=== PATIENT | female | born 1955 | race African-American/Black ===

== ENCOUNTER 2020-08-24 08:52 | Day surgery (SDC) | payer BC ==
[2020-08-21 10:39] VITALS: BMI 23.7
--- NOTE | 2020-08-21 14:14 | HP ---
Admitting History and Physical - Primary Care Physician PCP: Blake Cooper - Admission Chief Complaint: H/o right breast cancer History of Present Illness: Patient is a 65 yo female with h/o right breast WE and SNBx in 2014 sec to cancer. The cancer was triple negative and therefore patient received chemo and radiation. Patient is now presenting for removal of lifeport. History Source: Patient Limitations to Obtaining History: No Limitations - Past Medical History Heme/Onc: Yes: Cancer (right breast cancer (2015)) - Past Surgical History Past Surgical History: Yes: Breast Biopsy (right breast WE with snbx 2014) Additional Past Surgical History: port placement endometrial ablation (at 53) left core bx (2017) - Smoking History Smoking history: Former smoker Have you smoked in the past 12 months: No If you are a former smoker, when did you quit?: 30 YEARS AGO Home Medications - Allergies Allergies/Adverse Reactions: Allergies Allergy/AdvReac Type Severity Reaction Status Date / Time vancomycin Allergy Severe Hives Verified 08/21/20 10:26 latex Allergy Intermediate Itching Verified 08/21/20 10:26 - Home Medications Home Medications: Ambulatory Orders NK [No Known Home Medication] 08/21/20 Family Medical History Family Hx Cancer: Grandmother (maternal) (ovarian cancer), Mother (breast cancer at 75), Father (prostate cancer at 65) Review of Systems - Review of Systems Constitutional: reports: No Symptoms Cardiovascular: reports: No Symptoms Respiratory: reports: No Symptoms Physical Examination Constitutional: Yes: Well Nourished, Calm Breast(s): Yes: Other (A cup breasts with a well-healed right breast scar. No evidence of palpable masses or adenopathy noted bilaterally.) Problem List - Problems (1) Breast cancer, right Code(s): C50.911 - MALIGNANT NEOPLASM OF UNSP SITE OF RIGHT FEMALE BREAST Qualifiers: Breast location: unspecified site of breast Patient sex: female Assessment/Plan Removal of lifeport
--- OUTSIDE RECORDS SUMMARY | 2020-08-24 08:56 | XMS ---
:1955 Author Organization [facility] Care Team Providers Name Role Phone EDEN [place] Unavailable Unavailable ACIERNO Unavailable Unavailable Acierno Unavailable MD ZORAIDA Unavailable Unavailable MD ZORAIDA Unavailable Unavailable MD ZORAIDA Unavailable Unavailable MD ZORAIDA Unavailable Unavailable MD ZORAIDA Unavailable Unavailable MD ZORAIDA Unavailable Unavailable MD ZORAIDA Unavailable Unavailable MD ZORAIDA Unavailable Unavailable MD ZORAIDA Unavailable Unavailable MD ZORAIDA Unavailable Unavailable MD ZORAIDA Unavailable Unavailable MD ZORAIDA Unavailable Unavailable MD ZORAIDA Unavailable Unavailable MD ZORAIDA Unavailable Unavailable MD ZORAIDA Unavailable Unavailable MD ZORAIDA Unavailable Unavailable MD ZORAIDA Unavailable Unavailable MD ZORAIDA Unavailable Unavailable MD ZORAIDA Unavailable Unavailable MD ZORAIDA Unavailable Unavailable MD ZORAIDA Unavailable Unavailable MD ZORAIDA Unavailable Unavailable MD ZORAIDA Unavailable Unavailable MD ZORAIDA Unavailable Unavailable MD ZORAIDA Unavailable Unavailable Gerard Copeland Unavailable Unavailable Nasra Alvarez Unavailable Unavailable Louis [place] Unavailable [phone] Louis [place] Unavailable [phone] Nasra [place]. Unavailable [phone] Louis [place] Unavailable [phone] Louis [place] Unavailable [phone] Louis [place] Unavailable [phone] [place], M. Unavailable [phone] Nasra [place]. Unavailable [phone] Nasra [place]. Unavailable [phone] Nasra [place]. Unavailable [phone] Nasra [place]. Unavailable [id number] Re-disclosure Warning The records that you are about to access may contain information from federally- assisted alcohol or drug abuse programs. If such information is present, then the following federally mandated warning applies: This information has been disclosed to you from records protected by federal confidentiality rules (42 CFR part 2). The federal rules prohibit you from making any further disclosure of this information unless further disclosure is expressly permitted by the written consent of the person to whom it pertains or as otherwise permitted by 42 CFR part 2. A general authorization for the release of medical or other information is NOT sufficient for this purpose. The Federal rules restrict any use of the information to criminally investigate or prosecute any alcohol or drug abuse patient.The records that you are about to access may contain highly sensitive health information, the redisclosure of which is protected by Article 27-F of the [facility] Public Health law. If you continue you may haveaccess to information: Regarding HIV / AIDS; Provided by facilities licensed or operated by the [facility] Office of Mental Health; or Provided by the [facility] Office for People With Developmental Disabilities. If such information is present, then the following [facility] mandated warning applies: This information has been disclosed to you from confidential records which are protected by state law. State law prohibits you from making any further disclosure of this information without the specific written consent of the person to whom it pertains, or as otherwise permitted by law. Any unauthorized further disclosure in violation of state law may result in a fine or usp sentence or both. A general authorization for the release of medical or other information is NOT sufficient authorization for further disclosure. Allergies and Adverse Reactions Type Description Substance Reaction Status Data Source(s ) 1 LATEX LATEX (fatal) NEXTGEN ([facility] ) LATEX Latex NEXTGEN ([facility]) 1 vancomycin vancomycin NEXTGEN ([facility]) Encounters Encounter Providers Location Date Indications Data Source(s ) Outpatient Attender: Magda 08/21/2020 YVETTE Alvarez 07:34:00 AM ([facility]) Outpatient Attender: Magda 08/20/2020 NEXTGEN Alvarez 09:04:00 AM ([facility] EDT Medical [facility]) Outpatient Attender: Magda 08/16/2020 YVETTE Lema 03:00:00 PM ([facility] NaomyReferrer: EDT Medica l - [facility]) Outpatient Attender: Magda 08/11/2020 NEXTGEN Alvarez 09:49:00 AM ([facility] EDT Medical [facility]) Outpatient Attender: Magda 06/14/2020 YVETTE Alvarez 12:00:00 AM ([facility] EDT [facility]) Attender: EDEN 06/08/2020 Dk [place] 02:47:19 PM EDT - 06/08/2020 11:59:00 PM EDT Attender: EDEN 06/08/2020 Dk arce [place] 02:47:19 PM EDT - 06/08/2020 11:32:08 AM EDT Attender: EDEN BRENNAN SDS-POB MRI 06/08/2020 [facility] [place] 11:33:30 AM EDT - 06/08/2020 11:59:00 PM EDT Attender: EDEN DENISB SDS-POB 06/08/2020 [facility] [place] MAMMO 11:32:08 AM EDT - 06/08/2020 11:32:08 AM EDT Attender: Gary 06/04/2020 [facility] [place] 11:07:10 AM EDT - 06/04/2020 11:08:19 AM EDT Attender: GARY BRENNAN UC-POB UC 06/04/2020 [facility] ACIERNO 10:53:19 AM EDT Attender: EDEN 05/26/2020 Dk arce [place] 11:54:11 AM EDT - 05/26/2020 11:59:00 PM EDT Attender: EDEN 05/26/2020 Dk POLANCOEL 11:08:19 AM EDT - 05/26/2020 11:59:00 PM EDT Attender: EDEN 05/26/2020 [facility] [place] 11:08:14 AM EDT - 05/26/2020 08:43:00 AM EDT Attender: UMANGI POB SDS-POB BC 05/26/2020 [facility] [place] 08:44:59 AM EDT Attender: UMANGI POB SDS-POB BC 05/26/2020 [facility] [place] 08:44:09 AM EDT - 05/26/2020 11:59:00 PM EDT Attender: UMANGI POB SDS-POB 05/26/2020 [facility] [place] MAMMO 08:42:18 AM EDT - 05/26/2020 08:43:00 AM EDT Attender: UMANGI 04/28/2020 [facility] [place] 11:14:47 AM EDT - 04/28/2020 11:59:00 PM EDT Attender: EDEN POB SDS-POB MRI 04/28/2020 [facility] [place] 10:57:10 AM EDT - 04/28/2020 11:59:00 PM EDT Outpatient Attender: Magda 04/26/2020 YVETTE Alvarez 10:47:00 AM ([facility] EDT [facility] - [facility]) Outpatient Attender: Magda 04/26/2020 YVETTE Alvarez 10:37:00 AM ([facility] EDT Medical [facility]) Outpatient 04/26/2020 NEXT ([facility]T Outpatient 04/25/2020 YVETTE ([facility] 08:42:[facility] EDT Outpatient Attender: Magda 04/18/2020 YVETTE Alvarez 03:21:00 PM ([facility] EDT Medical - [facility]) Outpatient Attender: Magda 04/18/2020 YVETTE Lema 03:15:00 PM ([facility] NaomyReferrer: EDT Medica l - [facility]) Outpatient 02/17/2020 NEXT ([facility] 07:11:[facility] EDT Outpatient 02/16/2020 YVETTE ([facility] 07:47:[facility] EST Outpatient 01/15/2020 YVETTE ([facility] 07:22:00 AM [facility] EST Outpatient Attender: Magda 10/20/2019 YVETTE Lema 10:00:00 AM [facility] Outpatient Attender: SERA 10/19/2019 YVETTE CONWAY MD 10:18:00 AM ([facility] EST [facility] - [facility]) Attender: UMANGI 09/13/2019 [facility] [place] 09:44:57 AM EDT - 09/13/2019 11:59:00 PM EDT Attender: UMANGI POB SDS-POB BD 09/13/2019 [facility] [place] 09:06:05 AM EDT Attender: UMANGI 09/13/2019 [facility] [place] 08:22:09 AM EDT - 09/13/2019 08:44:00 AM EDT Attender: UMANGI POB SDS-POB MRI 09/13/2019 [facility] [place] 08:01:22 AM EDT Outpatient Attender: Magda 09/01/2019 YVETTE Alvarez 12:00:00 AM ([facility] - [facility]) Outpatient Attender: Magda 06/28/2019 YVETTE Lema 12:00:00 AM ([facility] NaomyReferrer: EDT Medica l - [facility]) Medications Medication Brand Start Product Dose Route Administrative Pharmacy at Indications Reaction Description Data Name Date Form Instructions Instructions Source(s) Carboxymeth REFRES RP NEXTGE N ylcellulose H ([facility] Sodium 5 TEARS Medical - MG/ML [facility] ) 0.5 % 0.5 % This may be an active medication. No end date is available. Start date above may not reflect actual date the medication was s tarted. lidocaine [id number] 06/08/2020 10 Infiltration complete d 10 mL, [facility] 1 % 02:45:00 PM mL Infiltration, Health injection EDT ONCE, [place] 10 mL 06/08/20 at 1445, For 1 dose Medication administered onsite Epinephrine 0.01 MG/ML lidocaine-epinephrine 06/08/2020 30 Intradermal completed 30 mL, [facility] / Lidocaine 1 %-1:417308 injection 02:30:00 PM mL Intradermal, Health Hydrochloride 10 MG/ML 30 mL EDT O NCE, [place] Injectable Solution at lidocaine-epinephrine 144 5, For 1 1 %-1:757586 injection do se 30 mL Medication administered onsite gadoteridol [id number] 06/08/2020 0.1 Intravenous completed 7.03 mmol [facility] (PROHANCE) 01:15:00 PM mmol/kg (0.1 mmol/kg Health injection EDT 7.03 mmol 70.3 kg), Intravenous, ONCE, [place] 06/08/20 at 1315, For 1 dose Medication administered onsite gadoteridol [id number] 04/28/2020 0.1 Intravenous completed 7.08 mmol [facility] (PROHANCE) 12:00:00 PM mmol/kg (0.1 mmol/kg Health injection EDT 7.08 mmol 70.8 kg), Intravenous, ONCE, 04/28/20 at 1200, For 1 dose Medication administered onsite Doxycycline DOXYCYCLINE 10/20/2019 take 1 RP NEXTGEN Monohydrate 100 MONOHYDRATE 12:00:00 AM tablet by ([facility] MG Oral Tablet EST oral route Medical - [place] 100 mg 100 mg 2 times [facility] every day [facility]) This may be an active medication. No end date is available. gadoteridol [id number] 09/13/2019 0.1 Intravenous completed 6.99 mmol [facility] (PROHANCE) 08:45:00 AM mmol/kg (0.1 mmol/kg Health injection EDT 6.99 mmol 69.9 kg), Intravenous, ONCE, 09/13/19 at 0845, For 1 dose Medication administered onsite adapalene 1 ADAPALENE 07/08/2017 apply by RP NEXTGEN MG/ML Topical 12:00:00 AM EDT topical route ([facility] Cream 0.1 % 0.1 every day to Medical - [place] % the [facility]) bedtime This may be an active medication. No end date is available. Fluocinonide 0.5 FLUOCINONIDE 07/08/2017 apply by NEXTGEN MG/ML Topical 12:00:00 AM topical ([facility] Solution 0.05 % EDT route 2 M edical - [place] 0.05 % times every [facility] day to the [facility]) affected area(s) This may be an active medication. No end date is available. Fluocinonide FLUOCINONIDE 06/16/2017 apply by JOSEPHINE NEXTGEN 0.0005 MG/MG 12:00:00 AM topical ([facility] Topical Ointment EDT route 2 Medical - [place] 0.05 % 0.05 % times every [facility] to the [facility]) affected area(s) This may be an active medication. No end date is available. Insurance Providers Payer name Policy type Policy ID Covered Covered green party's Policy P lucas / Coverage green party ID relationship to [employer] ormation type johnson BC PPO [id number] SP [id number] [place] [id number] [facility] [id number] Self YLS [id number] [facility] [id number] Self [id number] HEALTHCARE Problems, Conditions, and Diagnoses Code Display Name Description Problem Type Effective Data Sour ce(s) Dates Z95.828 Presence of other Port-A-Cath in Diagnosis 08/16/[address] implants place 03:00:00 PM ([facility] grafts EDT Medical - [place] [facility]) Z01.818 Encounter for Pre-op evaluation Diagnosis 08/16/2020 NEXT GEN other 03:00:00 PM ([facility] preprocedural EDT Medical - M t examination [facility]) N63.0 Unspecified lump Unspecified lump Diagnosis 06/08/2020 [facility] in unspecified in unspecified 11:32:08 AM breast breast EDT Z11.59 Encounter for Encounter for Diagnosis 06/04/2020 Dk peters screening for screening for 10:53:19 AM other viral other viral EDT diseases diseases R92.8 Other abnormal and Other abnormal Diagnosis 05/26/2020 [facility] inconclusive and inconclusive 08:44:59 AM findings on findings on EDT diagnostic imaging diagnostic of breast imaging of breast C50.919 Malignant neoplasm Malignant Diagnosis 05/26/2020 [facility] of unspecified neoplasm of 08:42:18 AM site of unspecified site EDT unspecified female of unspecified breast female breast Z11.59 Encounter for Encounter for Diagnosis 04/18/2020 NEXTGEN screening for laboratory 03:15:00 PM ([facility] other viral testing for EDT Medical - [place] diseases COVID-19 virus [facility]) M54.2 Cervicalgia Neck pain Diagnosis 10/20/2019 NEXTGEN 10:00:00 AM ([facility] EST Medical - [place] [facility] W57.xxxA Bitten or stung by Insect bite, Diagnosis 10/20/2019 NEXT GEN nonvenomous insect unspecified site, 10:00:00 A M ([facility] and other initial encounter EST [facility] [place] nonvenomous [facility]) initial encounter Surgeries/Procedures Procedure Description Date Indications Data Source(s) OFFICE CONSULTATION OFFICE CONSULTATION 08/16/2020 N EXTGEN ([facility] 12:00:00 AM Medical - [place] Ki sco EDT [facility]) MA DIG MA DIG Routine 06/08/2020 Lump or 06/08/2020 Lump or Ga rnet POST PROC POST PROC 2:27 PM EDT mass in 02:27:50 PM mass in Health MASSIMO LEFT MASSIMO LEFT breast EDT breast BREAST BREAST Lump or mass in breast MR GUIDANCE MRI Routine 06/08/2020 Lump or 06/08/2020 Lump o r [facility] NEEDLE BREAST 2:13 PM EDT mass in 02:13:25 PM mass in Health PLACEMENT BIOPSY breast EDT breast LEFT Lump or mass in breast CREATININE CREATININE Routine 06/08/2020 06/08/2020 [facility] BLOOD BLOOD POC 12:16 PM 12:16:00 PM H ealth EDT EDT US AXILLA US AXILLA Routine 05/26/2020 Abnormal 05/26/2020 Abnor mal MRI, [facility] LEFT LEFT 9:10 AM EDT ultrasound 09:10:37 AM breas tAbnormal Health of breast EDT ultrasound of Abnormal breast MRI, breast Abnormal MRI, breast Abnormal ultrasound of breast US EVAL US EVAL Routine 05/26/2020 Breast 05/26/2020 Breast Ga rnet BREAST BREAST 9:10 AM EDT cancer 09:10:17 AM cancer Health MASS LEFT MASS LEFT EDT Breast cancer MA DIGITAL MA DIGITAL Routine 05/26/2020 Breast 05/26/[address] [facility] MAMMO TORRIE MAMMO TORRIE 8:48 AM EDT cancer 08:48:04 AM can er Health DIAGNOSTIC DIAGNOSTIC EDT Breast cancer MRI BREAST MRI BREAST Routine 04/28/2020 Malignant 04/28/2020 Ma lignant [facility] TORRIE WO AND TORRIE WO AND 12:47 PM EDT neoplasm of 12:47:06 PM neoplasm of Health W CONTRAST W CONTRAST breast EDT breast AND CAD AND CAD (female) (female) Malignant neoplasm of breast (female) OFFICE/OUTPATIENT VISIT OFFICE/OUTPATIENT VISIT 04/18/2020 NEXTGEN EST EST 12:00:00 AM EDT ([facility] ) MRI BREAST MRI BREAST Routine 09/13/2019 Malignant 09/13/2019 Ma lignant [facility] TORRIE WO AND TORRIE WO AND 9:14 AM EDT neoplasm of 01:14:38 P M neoplasm of Health W CONTRAST W CONTRAST breast EDT breast AND CAD AND CAD (female) (female) Malignant neoplasm of breast (female) DXA BONE BD BONE Routine 09/13/2019 Malignant 09/13/2019 Maligna nt [facility] DENSITY MINERAL 9:11 AM EDT neoplasm of 01:11:23 PM neop las of Health STUDY 1/> DENSITY breast EDT breast SITES DEXASCAN (female) (female) AXIAL SKEL Malignant neoplasm of breast (female) Results ID Date Data Source [id number] 06/15/2020 04:25:01 PM EDT [employer] ADDENDUM: FriJun 15, 2020 4:25 PM by Torito Esqueda MD ADDENDED REPORT 06/15/2020 Addendum: I have reviewed the pathologist's findings. Pathology diagnosis:Site A: Papillary ne oplasm. These results indicate a high-risk lesion and are concordant with theimagin g finding. Site B: Sclerosing Papillary Neoplasm. These results indicate a high -risk lesionand are concordant with the imaging finding. In view of these findin gs a surgical consultation isrecommended. The written copy of the final pathology repo rt has been forwarded to your office by the departmentof pathology. Thank you for th e opportunity to participate in the care of this patient. ORIGINAL: [facility] Jun 08, 2020 2:47 PM by Theo Escoto MDHISTORY:Patient is seen for a magnetic resonance imaging needle biopsy with vacuum assistance of asuspicious area of non ma ss-like enhancement in the left breast in the lower quadrant, of area ofnon mass-like enhancement in the left breast in the upper quadrant. CONSENT:Prior to the exam, the procedure was discussed and questions answered with the patient. Thedeployment of the marker clip was also discussed witht the patient. Oral and written informedco nsent was obtained. Standard MRI patient screening was observed. A universal prot ocol time outwas performed. TECHNIQUE:The patient was positioned prone on the MR t able with her breast within a dedicated breast coil. Aninitial T1 weighted gradi ent echo pre-contrast sequence utilizing fat suppression was obtained inthe sagittal projection. The patient was then injected with Omni scan contrast. Additional T1w eighted post-contrast sagittal T1 gradient echo sequences were obtained at 1 min an d 2 minpost-injection. The lesion to be biopsied was targeted. The skin was prep ped with Betadine. 1%lidocaine was used for superficial anesthesia. 1% lidocaine wit h epinephrine was used for deepanesthesia surrounding the lesion(s). A 9 gauge Musa os probe was inserted into the tissue to bebiopsied and samples were obtained usi ng vacuum assistance. Post procedure sequences were obtainedto ensure proper placement of the biopsy needle. The patient tolerated the procedure well withoutcomp lications. Post discharge instructions were given to the patient orally and a writte n copy wassupplied. FINDINGS SITE 1:Following targeting a MR compatible bi opsy needle was inserted and advanced to the level of thelesion. Several samples were taken. A barbell clip was deployed through the probe at the biopsysite for future l ocalization purposes. FINDINGS SITE 2:Using the technique described in finding site 1. A D-Shaped clip was deployed through the probe atthe biopsy site for future local ization purposes. POST LOCALIZATION MAMMOGRAM:A post-procedure mammogram was performed and documents satisfactory clip placement. IMPRESSION:Successful MRI gu ided needle biopsy of a suspicious area of non mass-like enhancement in the leftbre ast and of area of non mass-like enhancement in the left breast. Histology/ Cytology pending. Name Value Range Interpretation Code Description Data Carlita rce(s) Supporting Document(s ) ID Date Data Source [id number] 06/15/2020 04:24:58 PM EDT [facility] ADDENDUM: [place] Jun 15, 2020 4:24 PM by Torito Esqueda MD ADDENDED REPORT 06/15/2020 Addendum: I have reviewed the pathologist's findings. Pathology diagnosis:Site A: Papillary ne oplasm. These results indicate a high-risk lesion and are concordant with theimagin g finding. Site B: Sclerosing Papillary Neoplasm. These results indicate a high -risk lesionand are concordant with the imaging finding. In view of these findin gs a surgical consultation isrecommended. The written copy of the final pathology repo rt has been forwarded to your office by the departmentof pathology. Thank you for th e opportunity to participate in the care of this patient. ORIGINAL: [facility] Jun 08, 2020 2:47 PM by Theo Escoto MDHISTORY:Patient is seen for a magnetic resonance imaging needle biopsy with vacuum assistance of asuspicious area of non ma ss-like enhancement in the left breast in the lower quadrant, of area ofnon mass-like enhancement in the left breast in the upper quadrant. CONSENT:Prior to the exam, the procedure was discussed and questions answered with the patient. Thedeployment of the marker clip was also discussed witht the patient. Oral and written informedco nsent was obtained. Standard MRI patient screening was observed. A universal prot ocol time outwas performed. TECHNIQUE:The patient was positioned prone on the MR t able with her breast within a dedicated breast coil. Aninitial T1 weighted gradi ent echo pre-contrast sequence utilizing fat suppression was obtained inthe sagittal projection. The patient was then injected with Omni scan contrast. Additional T1w eighted post-contrast sagittal T1 gradient echo sequences were obtained at 1 min an d 2 minpost-injection. The lesion to be biopsied was targeted. The skin was prep ped with Betadine. 1%lidocaine was used for superficial anesthesia. 1% lidocaine wit h epinephrine was used for deepanesthesia surrounding the lesion(s). A 9 gauge Musa os probe was inserted into the tissue to bebiopsied and samples were obtained usi ng vacuum assistance. Post procedure sequences were obtainedto ensure proper placement of the biopsy needle. The patient tolerated the procedure well withoutcomp lications. Post discharge instructions were given to the patient orally and a writte n copy wassupplied. FINDINGS SITE 1:Following targeting a MR compatible bi opsy needle was inserted and advanced to the level of thelesion. Several samples were taken. A barbell clip was deployed through the probe at the biopsysite for future l ocalization purposes. FINDINGS SITE 2:Using the technique described in finding site 1. A D-Shaped clip was deployed through the probe atthe biopsy site for future local ization purposes. POST LOCALIZATION MAMMOGRAM:A post-procedure mammogram was performed and documents satisfactory clip placement. IMPRESSION:Successful MRI gu ided needle biopsy of a suspicious area of non mass-like enhancement in the leftbre ast and of area of non mass-like enhancement in the left breast. Histology/ Cytology pending. Name Value Range Interpretation Code Description Data Carlita rce(s) Supporting Document(s ) ID Date Data Source [id number] 06/08/2020 02:56:41 PM EDT [employer] Name Value Range Interpretation Description Data Sup porting Code Source(s) Document(s ) Financial Coordinator [facility] Interface Message Text Pt. Tolerated procedure well. No bleedi ng noted at biopsy site. Steri stripsdry, clean and intact. Ice pack fitted in br a with binder in place. Pt. Deniespain or discomfort. Discharge instructions give n to patient and patientverbalized understanding instructions. ID Date Data Source [id number] 06/13/2020 11:02:00 AM EDT [employer] Surgical Pathology Report Case: [id number] Authorizing Provider: Theo Escoto MD Collected: 06/08/2020 1400 Ordering Loca tion: [employer] [facility] Received: 06/09/2020 0812 [facility] Outpatient Building [facility] Pathologist: Los Gerardo MD Specimens: A) - Breast, Le ft, MRI: DX Enhancing Left Breast foci Specimen A: Left Breast Inferior B) - Breast, Left, MRI: Specimen B: Left Breast Superior A. Left breast, inferior, MRI guided biopsy: Papillary neoplasm.Ad jacent fibrocystic and fibroadenomatoid changes.B. Left breast, superior, MRI gu ided biopsy:Sclerosing papillary neoplasm.Adjacent proliferative fibrocys tic and fibroadenomatoid changes.See comment. Myoepithelial markers CK5/6, smooth mu scle myosin heavy chain and p40 demonstrate an intact myoepithelial cell layer mitig ating against invasive malignancy.A. Received in formalin labeled left breast inferior MRI. It consists of multiple irregular and cylindrical fragments of s oft, yellow-white tissue measuring in aggregate 2.5 x 1.3 x 0.8 cm. The speci men is entirely submitted in four blocks. B. Received in formalin labeled left breast superior MRI. It consists of multiple irregular and cylindrical fragments of s oft, yellow-white tissue measuring in aggregate. 3.0 x 1.5 x 0.6 cm. The spec imen is entirely submitted in four blocks. Name Value Range Interpretation Code Description Data Carlita rce(s) Supporting Document(s ) ID Date Data Source [id number] 06/08/2020 12:18:00 PM EDT [facility] Name Value Range Interpretation Description Data Sup porting Code Source(s) Document(s ) CREATININE 0.8 0.6-1.3 [facility] BLOOD POC mg/dL Health EGFR LEESA >=60.0 [facility] FEMALE POC Health EGFR AA FEMALE >=60.0 [facility] POC Health ID Date Data Source [id number] 06/07/2020 05:07:20 PM EDT [facility] Name Value Range Interpretation Description Data Sup porting Code Source(s) Document(s ) Financial Coordinator [facility] Interface Message Text Pre-surgical COVID-19 Screening Encounte r NoteHPI:Patient presents for COVID-19 testing ahead of biopsy scheduled for with [facility]. Patient denies any sick contacts in the last 14 days. T hepatient denies travel history outside the [place] in the last 14 days. Denies cough,fev er, chills, rash, SOB or chest pain. Patient had pre-surgical testing visiton 06/04/20 20.Review of Systems:Constitutional: Negative for chills, fevers, malaise/fatigue and weight lossHEENT: Negative congestion, sinus pain or pressure or sore throatRespirato ry: Negative for cough, sputum production, SOB or hemoptysisCardiovascular: Negativ e for chest pain, palpitations or leg swellingMusuloskeletal: Negative for myl agias or joint painsPhysical Exam:Vitals: Temperature: 96.7Constitutional: Patient is well-developed, well-nourished and in no distressHEENT: Nose Normal. Oropharynx i s cleared and moist. Conjunctivae are normalbilaterally. Right and left eye ex hibit no discharge.Skin: Skin is warm and dry. No rash or erythema noted.Past Medi anuel History:Past Medical History:Diagnosis Date High cholesterol Neuropathy Pain of right breast Right breast cancer with malignant cell s in regional lymph nodes no greaterthan 0.2 mm and no more than 200 cellsPast Surgic al History:Past Surgical History:Procedure Laterality Date bilateral eye surgery 09/17/2014 corne al abrasion BREAST SURGERY right lumpectomy endometrial ablasion excessive breast tissue removed 11/17 EYE SURGERY Bilateral chronic dry eye right lumpectomy 10/26/2014Past Famil y History:Family HistoryProblem Relation Age of Onset Breast cancer Mother Prostate cancer Father Ovarian cancer Maternal Grandmother Breast cancer CousinPast Social History :Social HistorySocioeconomic History Marital status: Spouse name: N ot on file Number of children: Not on file Years of education: Not on file Highest education level: Not on fileOcc upational History Not on fileSocial Needs Financial resource strain: Not on file Food insecurity Worry: Not on file In ability: Not on file Transportation needs Medical: Not on f ile Non-medical: Not on fileTobacco Use Smoking status: Former Smoker Last att empt to quit: 12/16/1986 Years since quittin.4 Smokeless tobacco: Never UsedSubstance and Sexual Activity Alcohol use: Yes Comment: social Drug use: No Sexual activity: Not on fileLifestyle Physical activity Days per week: Not o n file Minutes per session: Not on file Stress: Not on fileRelationships Social connections Talks on phone: Not on file Gets together: Not on file Attends cheondoism service: Not on file Active m ember of club or organization: Not on file Attends meetings of clubs or organizatio ns: Not on file Relationship status: Not on file Intimate partner violence Fear of curr ent or ex partner: Not on file Emotionally abused: Not on file Physically abused: Not on file Forced sexual activity: Not on fileOther Topics Concern Not on fileSocial History Narrative Not on fileAllergies: Other; Vancomycin ; Erythromycin; and LatexMedications:Current Outpatient MedicationsMedication Sig Dis pense Refill Ascorbic Acid (VITAMIN C) 100 MG tablet Take 100 mg by mouth daily. b complex vitamins capsule Take 1 capsu le by mouth daily. Coenzyme Q10 (COQ-10 PO) Take by mouth . Lactobacillus (ACIDOPHILUS PO) Take by mouth. polyvinyl alcohol (ARTIFICIAL, LIQUIFIL M TEARS) 1.4 % ophthalmic solution 1drop as needed. sodium chloride (VICENTE 128) 5 % ophthalm ic solution Place 1 drop into both eyesas needed.No current facility-administered medications for this visit.Labs (In the last 30 days):No visits with results within 1 Month(s) from this visit.Latest known visit with results is:Office Visit on 11/05/20 17Component Date Value Ref Range Status Glucose 11/05/2017 91 65 - 99 mg/dL Fi nal BUN 11/05/2017 14 8 - 27 mg/dL Final CREATININE 11/05/2017 0.65 0.57 - 1.00 mg/dL Final EGFR NON AFR CYMRO 11/05/2017 96 >5 9 mL/min/1.73 Final EGFR AFRICANAMERICAN 11/05/2017 111 >5 9 mL/min/1.73 Final BUN/Creatinine Ratio 11/05/2017 22 12 - 28 Final SODIUM 11/05/2017 143 134 - 144 mmol/L Final Potassium 11/05/2017 4.0 3.5 - 5.2 mmo l/L Final Chloride 11/05/2017 101 96 - 106 mmol/ L Final Carbon Dioxide 11/05/2017 26 18 - 29 m mol/L Final Calcium 11/05/2017 10.1 8.7 - 10.3 mg/ dL FinalAssessment and Plan:Darinel was seen today for coronavirus screening.Diagnose s and all orders for this visit:Encounter for screening for other viral diseases- COVID-19 (Pathline)COVID -19 Nasopharyngeal swab was obtained without difficulty.The Patient wore a surgical mask during the encounter except when sample wasbeing ob tained.The following PPE was worn by the provider during the visit: N-95, Face sh ield/Protective Eyewear, Gown and Gloves.Patient advised to follow up with surgeon or PCP's office is they developsymptoms. Patient acknowledges ve rbal understanding of treatment plan and has nofurther questions at this time.The pat ient shows no signs or symptoms indicating COVID-19 infection. Thesurgical team and patient will be notified of the COVID swab result. The patientwill be considered op timized for surgery following a negative test result.Signed:Gary Mirza, ZINA2019 ID Date Data Source [id number] 06/05/2020 05:58:00 PM EDT [employer] Name Value Range Interpretation Description Data Sup porting Code Source(s) Document(s ) SARS-COV Not Not Dola -2 Detected Detected [facility] 06/05/2020 @ 5:58pm results received from [employer] via fax. ID Date Data Source [id number] 05/26/2020 11:54:05 AM EDT [employer] ORIGINAL: FriMay 26, 2020 11:54 AM by Torito Esqueda MDHISTORY:Patient is 64 years old and is seen for diagnostic and personalhistory of breast cancer in the right breast. The patient's lastclinical breast examwas on 05/03/2020. The patient has a history of bilateral MRI Biopsy Rosalinau zeke, 2016, left needle biopsy in 2014 - benign, right lumpectomy [id number] - malign ant and bilateral excisional biopsy more than 10 yearsago - benign. The patient has a history of right breast cancer [id number]. The patient has the following family history of breast cancer:mother, at age74, breast cancer. FILMS COMPARED:The present exami nation has been compared to prior imaging [facility]per[facility] and 05/16/2020, [facility] on 03/11/20 19, 06/17/2019, 09/13/2019and 04/28/2020. MAMMOGRAM FINDINGS:The following mammogr aphic views were obtained: bilateral cc spotcompression with tomosynthesis, bila teral spot lateral withtomosynthesis, bilateral craniocaudal with tomosynthesi s, bilateralmediolateral obliquewith tomosynthesis, bilateral 90 degree later al with tomosynthesis. Computer-aided detection wasutilized by the radiologist in the interpretation of this examination. The breasts are heterogeneously dense, w hich may obscure small masses. Finding 1: There are multiple biopsy clips in both breasts. Finding 2: There are stable punctate calcifications with regionaldis tribution in the lateral region of the left breast. ULTRASOUND FINDINGS:High resolut ion real time scanning was performed of all four quadrantsandthe retroareolar region s of both breasts. Finding 3: There is a cyst measuring 5 millimeters in the left breastat 5 o'clock located 2 centimeters from the nipple. Internalechotexture is anechoic. There is a single punctate calcification Finding 4: The finding in question is not seen on ultrasound. Finding 5: There are normal appearing lymph node s in the left axilla.In retrospect the lymph nodes are stable in size compared to melany orMRIs. IMPRESSION:Finding 1: Biopsy clips in both breasts are benign. Please note thatthe left 5:00 MRI guided biopsy yielded papilloma, however the patientelected no t to have surgery for this area. Finding 2: Stable calcifications in the left breast are benign. Finding 3: This was recommended for biopsy at an outside facility.Howeve mckay the current examination it appears benign. Finding 4: Areas of nonmass enh ancement in the left breast upperouter quadrant and lower outer quadrant are collins spicious. A 2 site leftMR guided breast biopsy is recommended. Finding 5: Left a xillary lymph nodes are benign. Findings and recommendations were discussed with the patient. BI-RADS Category 4:Suspicious Abnormality [place]'s 2012 "Dense Breast Law" states:If your mammogram demonstrates that you have dense breast tissue, whichcould hide small abnormalities, you might benefit from supplementaryscre ening tests, which can include a breast ultrasound screening or abreast MRI exam ination, or both, depending on your individual riskfactors.A report of your mammography results, which contains information aboutyour breast density, vasquez s been sent to your physicians office, and youshould contact your physician if you have any questions or concernsabout this report. Name Value Range Interpretation Code Description Data Carlita rce(s) Supporting Document(s ) ID Date Data Source [id number] 05/26/2020 11:08:12 AM ED [employer] ORIGINAL: Fri May 26, 2020 11:08 AM by Torito Esqueda MDHISTORY:Patient is 64 years old and is seen for diagnostic and personal history of breast cancer in [facility]. The patient's last clin ical breast exam was on 05/03/2020. The patient has a historyof bilateral MRI Bi opsy in November,, left needle biopsy in 2014 - benign, right lumpectomy [id number] - malignant and bilateral excisional biopsy more than 10 years ago - benign. The pa amy hasa history of right breast cancer in 2013. The patient has the following fam alex history of breastcancer: mother, at age 74, breast cancer. FILMS COMPARED:The pr esent examination has been compared to prior imaging studiesperformed at [facility] on 05/15/2020 and 05/16/2020, and at [facility] on 2018, 06/17/2019, 09/13/2019 and 04/28/2020. MAMMOGRAM FINDINGS:The following mammogr aphic views were obtained: bilateral cc spotcompression with tomosynthesis, bila teral spot lateral with tomosynthesis, bilateral craniocaudalwith tomosynthesis , bilateral mediolateral oblique with tomosynthesis, bilateral 90 degree later alwith tomosynthesis. Computer-aided detection was utilized by the radiologis t in the interpretationof this examination. The breasts are heterogeneously dense, w hich may obscure small masses. Finding 1: There are multiple biopsy clips in both breasts. Finding 2: There are stable punctate calcifications with regional di stribution in the lateralregion of the left breast. ULTRASOUND FINDINGS:High resolut ion real time scanning was performed of all four quadrants andthe retroareolar regio ns of both breasts. Finding 3: There is a cyst measuring 5 millimeters in the left breast at 5 o'clock located 2centimeters from the nipple. Internal echotexture i s anechoic. There is a single punctatecalcification noted. Finding 4: The finding in question is not seen on ultrasound. Finding 5: There are normal appearing lymph nodes in the left axilla. In retrospect the lymph nodesare stable in size compared to prior MRIs. IMPRESSION:Finding 1: Biopsy clips in b oth breasts are benign. Please note that the left 5:00 MRI guidedbiopsy yielded papil nick, however the patient elected not to have surgery for this area. Finding 2: Stabl e calcifications in the left breast are benign. Finding 3: This was recommended for biopsy at an outside facility. Howeveron the current examination it appears benig n. Finding 4: Areas of nonmass enhancement in the left breast upper outer quadrant and lower outerquadrant are suspicious. A 2 site left MR guided breast biopsy is rec ommended. Finding 5: Left axillary lymph nodes are benign. Findings and recommend ations were discussed with the patient. BI-RADS Category 4:Suspicious Abnormalit y [facility]'s 2012 "Dense Breast Law" states:If your mammogram demonstrates th at you have dense breast tissue, whichcould hide small abnormalities, you might bene fit from supplementaryscreening tests, which can include a breast ultrasound screenin g or abreast MRI examination, or both, depending on your individual risk factor s.A report of your mammography results, which contains information about your breast d ensity, hasbeen sent to your physicians office, and you should contact your phys ician if you have anyquestions or concerns about this report. Name Value Range Interpretation Code Description Data Carlita rce(s) Supporting Document(s ) ID Date Data Source [id number] 05/26/2020 11:08:[facility]: FriMay 26, 2020 11:08 AM by Torito Esqueda MDHISTORY:Patient is 64 years old and is seen for diagnostic and personal history of breast cancer in [facility]. The patient's last clin ica breast exam was on 05/03/2020. The patient has a historyof bilateral MRI Bi opsy in November,, left needle biopsy in 2014 - benign, right lumpectomy [id number] - malignant and bilateral excisional biopsy more than 10 years ago - benign. The pa tient hasa history of right breast cancer in 2013. The patient has the following fam alex history of breastcancer: mother, at age 74, breast cancer. FILMS COMPARED:The pr esent examination has been compared to prior imaging [facility]performed at [facility] [employer] [facility] on 05/15/2020 and 05/16/2020, and [facility], 06/17/2019, 09/13/2019 and 04/28/2020. MAMMOGRAM FINDINGS:The following mammogr aphic views were obtained: bilateral cc spotcompression with tomosynthesis, bila teral spot lateral with tomosynthesis, bilateral craniocaudalwith tomosynthesis , bilateral mediolateral oblique with tomosynthesis, bilateral 90 degree later alwith tomosynthesis. Computer-aided detection was utilized by the radiologis t in the interpretationof this examination. The breasts are heterogeneously dense, w hich may obscure small masses. Finding 1: There are multiple biopsy clips in both breasts. Finding 2: There are stable punctate calcifications with regional di stribution in the lateralregion of the left breast. ULTRASOUND FINDINGS:High resolut ion real time scanning was performed of all four quadrants andthe retroareolar regio ns of both breasts. Finding 3: There is a cyst measuring 5 millimeters in the left breast at 5 o'clock located 2centimeters from the nipple. Internal echotexture i s anechoic. There is a single punctatecalcification noted. Finding 4: The finding in question is not seen on ultrasound. Finding 5: There are normal appearing lymph nodes in the left axilla. In retrospect the lymph nodesare stable in size compared to prior MRIs. IMPRESSION:Finding 1: Biopsy clips in b oth breasts are benign. Please note that the left 5:00 MRI guidedbiopsy yielded papil nick, however the patient elected not to have surgery for this area. Finding 2: Stabl e calcifications in the left breast are benign. Finding 3: This was recommended for biopsy at an outside facility. Howeveron the current examination it appears benig n. Finding 4: Areas of nonmass enhancement in the left breast upper outer quadrant and lower outerquadrant are suspicious. A 2 site left MR guided breast biopsy is rec ommended. Finding 5: Left axillary lymph nodes are benign. Findings and recommend ations were discussed with the patient. BI-RADS Category 4:Suspicious Abnormalit y [place]'s 2012 "Dense Breast Law" states:If your mammogram demonstrates th at you have dense breast tissue, whichcould hide small abnormalities, you might bene fit from supplementaryscreening tests, which can include a breast ultrasound screenin g or abreast MRI examination, or both, depending on your individual risk factor s.A report of your mammography results, which contains information about your breast d ensity, hasbeen sent to your physicians office, and you should contact your phys ician if you have anyquestions or concerns about this report. Name Value Range Interpretation Code Description Data Carlita rce(s) Supporting Document(s ) ID Date Data Source [id number] 04/28/2020 02:16:40 PM EDT [facility] ORIGINAL: FriApr 28, 2020 2:16 PM by Theo Vela MDEXAMINATION:MRI BREAST TORRIE WO AND W CONTRAST AND CADHISTORY:Maligna nt neoplasm of breast (female). Patient has a history of breast cancer in the right breastand a family history of breast cancer. Patient has a history of bilateral MRI b iopsies in November2016, left needle biopsy in 2014, right lumpectomy in 2013 and bilat eral excisional biopsies morethan 10 years ago which were benign. The patient has a history of right breast cancer in 2013.COMPARISON:This is compared to a pr ior MRI from 09/13/2019 and to a prior mammogram and ultrasound from06/17/2019. TECHNIQUE:Multiple axial images of both breasts were performed with and without the infusion of 14 mL ofProHance. The infusion was performed without incident after written and informed consent wasobtained. Dynamic contrast enhanced gradient echo imaging was performed following theadministration of the contrast materi al. Contrast enhanced images were obtained at 1 minute, 2minutes and 6 minutes. Hi gh-resolution postcontrast images were obtained at 3 minutes. Imageswere inter preted on a dedicated workstation with anatomic subtraction in computer-aided e valuation.FINDINGS:There is redemonstration of multiple enhancing foci within both b reasts, more so on the left whencompared to the right. The overall pattern of enhan cement is unchanged from previously. Withinthe enhancing areas in the left br east there are 2 new more conglomerate areas of enhancement. 1is seen within the upp er outer quadrant, best appreciated on image 207, measuring 7 mm. This islocated 3.7 cm from the nipple. The 2nd more ill-defined enhancing area (image 186) i s seen withinthe lower outer quadrant of the left breast measuring 6 mm located 4.2 c m from the nipple. Thereare no other new enhancing foci appreciated either breast . Please note that the numerous enhancingfoci that are identified make i t difficult to exclude a small neoplasm. At the current time thereare slightly promi nent lymph nodes in the left axilla, 1 of which has loss of fatty hilum. Thereare no chest wall abnormalities. The patient is again seen to be status post right axill zeke lymphnode dissection.IMPRESSION:1. Extensive enhancement throughout both br easts limiting the evaluation.2. 2 new enhancing areas within the left breast, 1 within the upper outer quadrant and the 2ndwithin the lower outer quadrant. Sec ond-look ultrasound is recommended. If not seen on ultrasoundthan an MRI directed b iopsy would be recommended.3. Slightly prominent left axillary lymph nodes with loss of fatty hilum of 1 of the 2 enlargedlymph nodes. Recommend ultrasou nd correlation with biopsy as deemed necessary based on ultrasoundfindings.BI -RADS 0: Additional imaging evaluation recommended. Name Value Range Interpretation Code Description Data Carlita rce(s) Supporting Document(s ) ID Date Data Source [id number] 04/28/2020 11:14:47 AM EDT [employer] Name Value Range Interpretation Description Data Sup porting Code Source(s) Document(s ) Financial Coordinator [facility] Interface Message Text Patient name and date of verified, history, allergies, and medicationsreviewed. Patient education form completed. IV acc ess obtained. ID Date Data Source [id number] 09/13/2019 02:28:33 PM EDT [employer] ORIGINAL: FriSep 13, 2019 2:28 PM by Theo Vela MDHISTORY:Patient is 64 years old and is seen for diagnostic,per ricarda history of breast cancer in the rightbreast and family history of breast cancer. The patient's last clinical breast exam was on 07/2019.The patient has a hi story of bilateral MRI Biopsy in November,, left needle biopsy in 2014 -benign , right lumpectomy in 2013 - malignant and bilateral excisional biopsy more than 10 years ago- benign. The patient has a history of right breast cancer in 2013. The patient has the followingfamily history of breast cancer: mother, at age 74, br east cancer. FILMS COMPARED:The present examination has been compared to prior i maging studies performed at [facility] on and 06/17/2019. BREAST MRI:Multiple axial images of both breasts were performed wi th and without infusion of 13.9 cc's ofprohance contrast, administered intrav enously without incident after written informed consent wasobtained. Dynamic c ontrast enhanced gradient echo imaging was performed following theadministration of Omni scan. Contrast enhanced images were obtained at 1 minute, 2 minutes, and 6mi nutes. High resolution post contrast images were obtained at 3 minutes. Images were interpreted on a dedicated workstation with automatic subtraction and computer aided evaluation. There is extensive background enhancement both breasts. Finding 1: Th ere are multiple enhancing foci in both breasts. These are more numerous on the left. A similar finding was seen on the last two MRIs from 02/2019and 10/2017. No one lesion is more suspicious than another. There are also stable foci of nonmass li ke enhancement within the right breast. No new suspicious foci are seen. Finding 2: Post lumpectomy changes are again seen on the right. The patient is also again se ento be status post right axillary lymph node dissection. Normal appearing left axill zeke lymph nodesare again seen. IMPRESSION:Finding 1: Multiple enhancin g foci in both breasts are probably benign. Follow-up in 6 months isrecommended. Fly mcclain 2: Area in the right breast is benign. BI-RADS Category 3:Probably Benign Name Value Range Interpretation Code Description Data Carlita rce(s) Supporting Document(s ) ID Date Data Source [id number] 09/13/2019 09:44:54 AM [facility] ORIGINAL: FriSep 13, 2019 9:44 AM by Theo Vela MDEXAMINATION:BD BONE MINERAL DENSITY DEXASCANHISTORY:Malignan t neoplasm of breast (female)COMPARISON:None.TECHNIQUE:Dual x -ray absorptiometry was performed of the lumbar spine and both hips.FINDINGS:1. B MD as determined from AP Spine L2-L4 is 1.242 g/cm2 with a T-Score of 0.5. This is co nsistentwith normal bone density.2. BMD as determined from Femur Neck Left is 1.134 g/cm2 with a T-Score of 0.7. This is consistentwith normal bone density.3. BM D as determined from Femur Neck Right is 1.089 g/cm2 with a T-Score of 0.4. This isconsistent with normal bone density.4. BMD as determined from Femur Total Left is 1 .165 g/cm2 with a T-Score of 1.3. This isconsistent with normal bone density.5. BMD as determined from Femur Total Right is 1.121 g/cm2 with a T-Score of 0.9. This isconsistent with normal bone density.ASSESSMENT:World Health Organiza tion-Definition of Osteoporosis and Osteopenia for Women*:Normal: T-Score at or above -1 SDOsteopenia: T-Score between -1 and -2.5 SDOsteoporos is: T-Score at or below -2.5 SDEstablished Osteoporosis: T-Score at or below - 2.5 SD plus fragility factor*WHO definitions only apply when a young healthy Caucasia n Women reference database is used todetermine T-Scores.IMPRESSION:National Osteoporosis Foundation (NOF) guidelines recommend initiating therapy to reduce f racturerisk in women with BMD:T-Score below - 2 SDT-Score below - 1.5 SD with other ri sk factors present Name Value Range Interpretation Code Description Data Carlita rce(s) Supporting Document(s ) ID Date Data Source [id number] 09/13/2019 08:22:09 AM EDT [employer] Name Value Range Interpretation Description Data Sup porting Code Source(s) Document(s ) Financial Coordinator [facility] Interface Message Text Procedure explained to pt, understanding verbalized. Iv placed. Reviewedallergies and history with pt. Discharge instructions also reviewed. Procedure Social History Code Duration Value Status Description Data Source(s ) Alcohol intake 06/08/2020 Current drinker [employer] 12:00:00 AM EDT of alcohol (finding) Tobacco smoking 06/08/2020 Former smoker [facility] status [facility] 12:00:00 AM EDT Tobacco smoking 06/04/2020 Former smoker [facility] status [facility] 12:00:00 AM EDT Alcohol intake 06/04/2020 Current drinker [facility] 12:00:00 AM EDT of alcohol (finding) Alcohol intake 04/28/2020 Current drinker [facility] 12:00:00 AM EDT of alcohol (finding) Tobacco smoking 04/28/2020 Former smoker [facility] status [facility] 12:00:00 AM EDT Tobacco smoking 09/13/2019 Former smoker [facility] status [facility] 12:00:00 AM EDT Alcohol intake 09/13/2019 Yes [facility] 12:00:00 AM EDT Vital Signs ID Date Data Source UNK Name Value Range Interpretation Code Description Data Source(s) Oxygen saturation in 100 % 100 % [facility] Arterial blood by Pulse oximetry Body weight 70.308 kg 70.308 kg [facility] Body height 170.2 cm 170.2 cm [facility] Respiratory rate 18 /min 18 /min [facility] Body temperature 37.06 Nadia 37.06 Nadia [facility] Heart rate 72 /min 72 /min [facility] Diastolic blood 80 mm[Hg] 80 mm[Hg] [facility] pressure Systolic blood 130 mm[Hg] 130 mm[Hg] [facility] pressure Body temperature 35.94 Nadia 35.94 Nadia [facility]
[2020-08-24] MEDS ORDERED: LIDOCAINE HCL 1%, 10 MG/ML (20ML VIAL) ONE (09:52)
[2020-08-24] MEDS ORDERED: BUPIVACAINE HCL/PF 0.25% (2.5MG/ML) 10 ML VIAL ONE (09:52)
[2020-08-24] MEDS ORDERED: MIDAZOLAM HCL 2 MG/2 ML SINGLE DOSE VIAL ONE (10:40)
[2020-08-24] MEDS ORDERED: PROPOFOL 20 ML ONE ×2 (10:40)
[2020-08-24] MEDS ORDERED: ONDANSETRON 4 MG/2 ML VIAL IVPUSH PRN (10:51)
[2020-08-24] MEDS ORDERED: KETOROLAC TROMETHAMINE 30 MG/1 ML VIAL IVPUSH PRN (10:51)
[2020-08-24] MEDS ORDERED: DEXTROSE 5%-0.45% SALINE 1,000 ML IV SCH (11:00)
[2020-08-24] MEDS ORDERED: DEXAMETHASONE SOD PHOSPHATE 4 MG/1 ML VIAL ONE (11:02)
[2020-08-24] MEDS ORDERED: LIDOCAINE HCL 1% PRESERVATIVE FREE - 30ML VIAL IJ ONE (11:18)
[2020-08-24] MEDS ORDERED: BUPIVACAINE HCL/PF 0.25% (2.5MG/ML) 10 ML VIAL IJ ONE ×2 (11:38)
[2020-08-24 12:02] VITALS: TEMP 98
[2020-08-24 12:27] VITALS: BP 128/71; PULSE 77
--- NOTE | 2020-08-24 12:29 | OP ---
DATE OF OPERATION: 08/24/2020 PREOPERATIVE DIAGNOSIS: History of right breast cancer. POSTOPERATIVE DIAGNOSIS: History of right breast cancer. PROCEDURE: Removal of left-sided internal jugular Port-A-Cath. PRIMARY SURGEON: Alisa Cooper MD TAPE EDITOR: DUSTY Hills COMPLICATIONS: There were no complications. ANESTHESIA: Local with IV sedation. INDICATION: Briefly the patient is a 65-year-old postmenopausal female of descent who has a history of undergoing a right breast partial mastectomy in 2014 with sentinel lymph node biopsy for a 3-cm triple-negative breast cancer with negative lymph nodes. She underwent adjuvant chemotherapy through a left-sided Port-A-Cath and had external beam radiation. She has been doing fine and had some recent biopsies showing benign papillomas in the left breast. She comes in today for removal of a left chest wall internal jugular vein Port-A-Cath which was placed back in 2014. The patient was brought in through Ambulatory Surgery on August 24, 2020. In the [facility] area site verification was made and informed consent was obtained. DESCRIPTION OF PROCEDURE: She was brought into the operating room and laid on the OR table in a supine position. Venodynes were placed on the lower extremities prior to local anesthesia. She underwent IV sedation, and the left chest wall was sterilely prepped and draped over the Port-A-Cath site. Lidocaine 1% was given directly over the Port-A-Cath site, and an elliptical incision was made around the previous insertion site, and the scar was removed. The catheter was completely removed intact along with the capsule and sent to Pathology as specimen. Hemostasis was achieved using electrocautery. The subcutaneous tissue was then reapproximated using 2-0 plain suture. The skin was closed using interrupted 3-0 deep dermal Vicryl suture and a running 4-0 subcuticular Biosyn suture. Mastisol, Steri-Strips were applied over the wound with a compressive dressing placed over this. The patient tolerated the procedure well without difficulty, was awake and alert at the end of the procedure and will be brought back to Ambulatory Surgery, where she will be discharged home the same day once discharge criteria are met. Estimated blood loss was minimal, and all sponge and needle counts were correct at the end of the case. The patient should follow up in the office in 1 week for a formal wound evaluation. ALISA COOPER M.D. [facility]/[id number]
--- NOTE | 2020-08-30 17:19 | PATH ---
Surgical Pathology Report Patient Name: DARINEL HOWE [facility]. Rec. #: [id number] /Age/Gender: 1955 (Age: 65) / F Account: [id number] [facility] Taken: 08/24/2020 Received: 08/24/2020 Reported: 08/30/2020 Physicians: Blake Cooper M.D. Specimen(s) Received PORT-A-CATH WITH CAPSULE Clinical History History of right breast cancer 5 years ago Final Diagnosis PORT-A-CATH WITH CAPSULE, EXCISION: DENSE FIBROUS CAPSULE AND FIBROADIPOSE TISSUE WITH CHRONIC INFLAMMATION AND HEMOSIDERIN- LADEN MACROPHAGE DEPOSITION. PORT-A-CATH. MACROSCOPIC DIAGNOSIS. Electronically Signed Cathy Bowles M.D. Gross Description Received in formalin labeled "Port-A-Cath with capsule," is a 2.5 x 2.5 x 1.3 cm white foreign body, consistent with a Port-A-Cath. The Port-A-Cath displays a 21.5 cm portion of blue tubing extending from one aspect. Separately received within the same container is a 2.4 x 1.5 x 0.2 cm portion of pizarro zazueta fibromembranous tissue with minimal attached fat, consistent with a fibrous capsule. The fibrous capsule is serially sectioned and entirely submitted in one cassette. 08/28/2020 [facility]08/28/2020
== END 2020-08-24 12:47 | disposition home or self-care (01) ==
LOC: FASU 08:52
PROVIDERS: ATTEND Surgery Surgical Oncology
PROC: 05HN33Z Insertion of Infusion Device into Left Internal Jugular Vein, Percutaneous Approach (ICD-10-PCS; principal; 2020-08-24 11:18)
DX: Z85.3 Personal history of malignant neoplasm of breast (principal); Z92.3 Personal history of irradiation; Z92.21 Personal history of antineoplastic chemotherapy
CPT/HCPCS: 88304-TC